=== PATIENT | male | born 1980 | race Caucasian/White ===

== ENCOUNTER 2017-07-29 17:57 | Inpatient (IN) | payer OTHER ==
[~2017-07-29] VITALS: Ht 180.3 cm; Wt 63.5 kg
[2017-07-29] MEDS ORDERED: diphenhydrAMINE 50 MG CAPSULE PO PRN (18:15)
[2017-07-29] MEDS ORDERED: MAG HYDROX/AL HYDROX/SIMETH 30 ML LIQUID UDC PO PRN (18:15)
[2017-07-29] MEDS ORDERED: LOPERAMIDE HCL 2 MG CAPSULE PO PRN ×2 (18:15)
[2017-07-29] MEDS ORDERED: MIRALAX 17 GM POWD.PACK PO PRN (18:15)
[2017-07-29] MEDS ORDERED: LORAZEPAM 2 MG/1 ML VIAL IM PRN (18:15)
[2017-07-29] MEDS ORDERED: MAGNESIUM HYDROXIDE 30 ML LIQUID UDC PO PRN (18:15)
[2017-07-29] MEDS ORDERED: LORAZEPAM 1 MG TABLET PO PRN (18:15)
[2017-07-29 18:36] VITALS: BP 142/91
[2017-07-29] MEDS ORDERED: TRAZ-147 PO (18:41)
[2017-07-29] MEDS ORDERED: GABA-534 PO (18:42)
[2017-07-29 18:50] LABS: *AMPHETAMINE, URINE NEGATIVE (NEGATIVE); *BARBITURATE, URINE NEGATIVE (NEGATIVE); *CANNABINOID, URINE POSITIVE (NEGATIVE); *COCCAINE, URINE NEGATIVE (NEGATIVE); *OPIATE, URINE NEGATIVE (NEGATIVE); *PHENCYCLIDINE SCREEN,URINE NEGATIVE (NEGATIVE)
--- NOTE | 2017-07-29 18:50 | NUR ---
PRE-ADMISSION Pt is a 36 yr old male, AA&Ox4. Pt is presenting himself to intake for alcohol use. Pt is observed with increase anxiety m/b difficulty staying still. Fine tremors and facial sweat are observed. Pt stated of vomiting throughout the day and continues to feel nauseous. Pt is c/o 9/10 pain. Pt states of having a headache, back pain and stomach pain. VS are BP 142/91, P 93, T 98.4, R 18, O2 96%. CIWA is 23. Pt states of drinking 24 beers and 1 pint of vodka for 6 weeks. Last drink was on 07/29/[address] Suarez is made aware. Pt will be admitted to the 3rd floor. Endorsed to rn night nurse to continue with care.
[2017-07-29] MEDS ORDERED: THIAMINE HCL 200 MG/2 ML VIAL IM ONE (19:00)
[2017-07-29] MEDS: LORAZEPAM 1 MG TABLET PO SCH ×2 (19:11→21:00)
[2017-07-29] MEDS: ONDANSETRON ODT 4 MG TAB.RAPDIS SL PRN (19:23)
[2017-07-29 20:00] VITALS: BP 137/89
--- NOTE | 2017-07-29 20:00 | NUR ---
Admission Note Pt is a 36 y/o male admitted on 07/29/17 for ETOH dependence. Pt has NKA, denies history of seizures. Pt was able to provide UDS. Upon admission CIWA 24, BP: 142/91, P: 93, R: 18, O2: 96%, T: 98.4, PA: 0. Weight 140, height 511. Pt reports he does not have a PCP, smokes 2-3 cigarettes daily, reports being in [facility] Emergency Room 2-3 weeks ago due to ETOH withdrawal. Pt is able to understand and respond to all questions pertaining to his hospitalization. Substance Abuse History is as follows: 1. Vodka 1 daily, last intake of 1 pint on 07/28/17, at this rate for the past 6 weeks. 2.Beer 18 12oz beer pack, last intake of 18 12oz beer pack on 07/28/17, at this rate for 6 weeks Pt also reports using a quarter of a gram of Marijuana about twice a week Pt reports he relapsed 6 weeks ago. Pts longest sober period for 3 years from [id number], per pt. Treatment history: [facility] [place], 6 weeks 2013. PMH: Anxiety, depression. Pt denies any hx of seizures. Pt did not bring any medications from home, but reports taking Gabapentin and Trazodone occasionally at home. Upon assessment, pt is AAOx4, pt has a score of CIWA 24, presents with anxiety, neck/head pounding, nausea, sweat, hot/cold, tremors visible, skin sweaty/clammy. Rash noted on right side hip, picture taken and placed in chart. Pt denies SI/HI. Educational information provided and left at bedside. Pt oriented to room and encouraged to notify staff with any concerns. Safety measures in place. Call light within reach, side rails up x 2, bed locked and in low position. Will continue to monitor.
[2017-07-29 20:45] LABS: BASOPHILS % (AUTO) 0.7 % (0.0-2.0); EOSINOPHILS % (AUTO) 0.5 % (0.0-7.0); HEMATOCRIT 45.2 % (40-50); LYMPHOCYTES # (AUTO) 1.5 K/UL (0.8-4.8); LYMPHOCYTES % (AUTO) 21.7 % (20.5-51.5); MEAN CORPUSCULAR HEMOGLOBIN 29.3 UUG (27.0-31.0); MEAN CORPUSCULAR HGB CONC 33 g/dL (32.0-37.0); MEAN CORPUSCULAR VOLUME 88.1 FL (82.0-92.0); MONOCYTES # (AUTO) 0.4 K/UL (0.1-1.30); MONOCYTES % (AUTO) 6.2 % (0.0-11.0); NEUTROPHILS % (AUTO) 70.9 % (38.5-71.5); PLATELET COUNT (AUTO) 153 K/UL (150-450); RED BLOOD CELL COUNT(AUTO) 5.13 MIL/UL (4.7-6.1); WHITE BLOOD COUNT (AUTO) 6.9 K/UL (4.0-11.2)
[2017-07-29] MEDS ORDERED: LORAZEPAM 1 MG TABLET PO SCH (21:00)
[2017-07-29 21:06] LABS: BILIRUBIN,TOTAL 0.8 mg/dL (0.2-1.0); MAGNESIUM 1.7 mg/dL (1.8-2.4); POTASSIUM 3.1 mmol/L (3.5-5.1); TOTAL PROTEIN, SERUM 7.2 g/dL (6.4-8.2)
[2017-07-29] MEDS ORDERED: POTASSIUM CHLORIDE 10 MEQ CAPSULE.SA PO ONE (21:45)
[2017-07-29] MEDS ORDERED: MAGNESIUM OXIDE 400 MG TABLET PO ONE (21:45)
[2017-07-29] MEDS ORDERED: LORAZEPAM 1 MG TABLET PO ONE (21:45)
--- NOTE | 2017-07-29 22:00 | NUR ---
Pt presents with anxiety, gross tremors, nausea, dizziness/lightheaded, hot/cold. CIWA 24 Ativan 2mg x1 administered Mag-Ox 400mg and Seamus-K 30 MEQ supplemented. Vitamin B1 inj and Zofran 4mg PRN administered. Safety measures in place. Will continue to monitor.
[2017-07-29] MEDS ORDERED: LORAZEPAM 1 MG TABLET ONE (22:07)
[2017-07-29] MEDS ORDERED: POTASSIUM CHLORIDE 10 MEQ CAPSULE.SA ONE (22:08)
[2017-07-29] MEDS ORDERED: MAGNESIUM OXIDE 400 MG TABLET ONE (22:08)
[2017-07-29] MEDS ORDERED: NICOTINE POLACRILEX 4 MG GUM-PK OF TEN BC PRN (23:15)
[2017-07-30] VITALS: BP 132/92
--- NOTE | 2017-07-30 | NUR ---
CIWA 22, Pt continues to present with anxiety, gross tremors, nausea, dizziness. Ativan 2mg PRN administered. Zofran 4mg/2ml inj administered for reports of feeling severely nauseous Safety measures in place, will continue to monitor. Addendum: 07/30/17 at 0215 by HUONG BATEMAN RN Benadryl 50mg PRN administered for sleep.
[2017-07-30] MEDS: LORAZEPAM 1 MG TABLET PO PRN ×3 (00:13→05:36)
--- NOTE | 2017-07-30 00:13 | NUR ---
IV Started on right forearm, gauge 24 site intact and patent, no redness, swelling noted. KCL NS running at 125ml/hr. Safety measures in place, will continue to monitor
[2017-07-30] MEDS: ONDANSETRON 4 MG/2 ML VIAL IM PRN (00:33)
[2017-07-30] MEDS: POTASSIUM CHLORIDE 20 MEQ in IV NS 1000 ML 1,000 ML IV PRN ×2 (00:45→12:50)
[2017-07-30] MEDS ORDERED: POLY10DR EACHEYE (02:46)
--- NOTE | 2017-07-30 03:12 | NUR ---
CIWA 18, pt reports feeling less anxious, less nausea, continues with tremors, skin flushed/clammy, dizziness/lightheaded, pt reports diarrhea. Ativan 2mg PRN and Imodium 4mg PRN administered. Safety measures in place. Will continue to monitor.
[2017-07-30 04:00] VITALS: BP 139/98
--- NOTE | 2017-07-30 04:12 | NUR ---
Upon reassessment, RHETT Lara.
--- NOTE | 2017-07-30 05:36 | NUR ---
CIWA 17, pt reports feeling hot/cold, gross tremors, nausea, sweat/clammy/skin and anxiety. Ativan 2mg PRN administered per MD orders. Safety measures in place. Will continue to monitor. Addendum: 07/30/17 at 0637 by HUONG BATEMAN RN Nicotine Gum 4mg PRN administered.
[2017-07-30] MEDS ORDERED: NICOTINE POLACRILEX 4 MG GUM-PK OF TEN BC ONE (05:45)
--- NOTE | 2017-07-30 07:00 | NUR ---
End of Shift Pt is a 36 year old male admitted for ETOH dependence, placed on 5 day Ativan taper. Pt reported consuming Vodka 1 pint daily, last intake of 1 pint on 07/28/17, Beer 18 12oz beer pack, last intake of 18 12oz beer pack on 07/28/17, at this rate for 6 weeks when he relapsed. Pt also reports using a quarter of a gram of Marijuana about twice a week. IV 24 gauge started on right forearm, intact and patient with no redness/swelling noted. KCL NS running at 125ml/hr. During shift, Ativan 2mg x1 and Ativan 2mg PRN x3 administered for CIWA 24. Assessment score decreased to CIWA 17. Zofran 4mg PRN ODT and Zofran 4mg/2ml in administered for nausea, injection effective, Mag-Ox 400mg and Seamus-K 30 MEQ supplemented. Imodium 4mg PRN administered for reports of diarrhea. Pt slept for 0 hours, intake of 700 ml PO, voids x2 and stool x0. Safety measures in place, call light within reach, side rails up x2, bed locked and in low position. Endorsed to day shift nurse.
--- NOTE | 2017-07-30 07:30 | NUR ---
START OF SHIFT Pt is a 36 yr old male, AA&Ox4. Pt was admitted on 07/29/17 for ETOH Dependence and is on 5 day Ativan taper. Medication wil well. Received report from shift production associate nurse. Pt was not able to sleep during the night. Pt started on KCL 20Meq in IV Sodium Chloride. IV site is on right hand, kept clean and dry. Pt is c/o increase anxiety, hot/cold chills, and nausea. Skin is intact, warm and dry to touch. Fine tremors are observed. Encouraged increase fluid intake. Will f/u with eMAR. Safety precautions observed. Call light is within reach. Will continue to monitor.
[2017-07-30 08:00] VITALS: BP 147/105
[2017-07-30] MEDS: LORAZEPAM 1 MG TABLET PO SCH ×4 (08:29→20:09)
[2017-07-30] MEDS: NICOTINE 14 MG/24HR PATCH TD PRN (08:30)
[2017-07-30] MEDS: CLONIDINE HCL 0.1 MG TABLET PO PRN ×2 (08:30→18:22)
[2017-07-30] MEDS: THIAMINE HCL 100 MG TABLET PO SCH (08:30)
[2017-07-30] MEDS: FOLIC ACID 1 MG TABLET PO SCH (08:30)
[2017-07-30] MEDS: MULTIVITAMINS,THERAPEUTIC TABLET PO SCH (08:30)
--- NOTE | 2017-07-30 08:30 | NUR ---
PRN GIVEN Pt c/o increase anxiety and sweats. Clonidine 0.1mg PO PRN was given as ordered. Pt also requested for NicoDerm patch for smoking cessation. NicoDerm patch 14mg PRN was applied on left shoulder. Will continue to monitor.
[2017-07-30] MEDS: IBUPROFEN 400 MG TABLET PO PRN ×2 (08:50→17:23)
--- NOTE | 2017-07-30 08:50 | NUR ---
PRN GIVEN Pt c/o headache 02/22. Motrin 400mg PO PRN was given as ordered. Medication wil well. Encouraged increase fluid intake. Will continue to monitor.
[2017-07-30] MEDS ORDERED: TUBERCULIN,PURIF.PROT.DERIV. 5 TU/0.1 ML TEST ID ONE (09:00)
[2017-07-30] MEDS ORDERED: GABAPENTIN 300 MG CAPSULE PO SCH (09:00)
[2017-07-30] MEDS ORDERED: LORAZEPAM 1 MG TABLET PO SCH (09:00)
--- NOTE | 2017-07-30 09:50 | NUR ---
PRN RE-ASSESSMENT Clonidine PRN and Motrin PRN was mildly effective. Pt continues to be observed with increase anxiety m/b difficultly staying still and c/o headache. Encouraged increase fluid intake. Will continue to monitor.
[2017-07-30] MEDS: ONDANSETRON ODT 4 MG TAB.RAPDIS SL PRN ×2 (10:40→18:21)
--- NOTE | 2017-07-30 10:41 | NUR ---
PRN GIVEN Pt c/o intermitted nausea and increase anxiety. Zofran 4mg SL PRN and Ativan 1mg PO PRN was given for CIWA score of 15. Educated pt on coping mechanism to cope with anxiety level. Pt was able to verbalize understanding. Will continue to monitor.
[2017-07-30 12:00] VITALS: BP 157/105
--- NOTE | 2017-07-30 12:00 | NUR ---
PRN RE-ASSESSMENT Zofran PRN and Ativan PRN was effective. Pt denies any n/v. CIWA score is 13. Encouraged increase fluid intake. Will continue to monitor.
[2017-07-30] MEDS: PATIENT MAY USE OWN MED- MD OK EACHEYE SCH ×2 (13:26→18:06)
[2017-07-30] MEDS ORDERED: hydrALAZINE HCL 50 MG TABLET PO PRN (13:30)
[2017-07-30] MEDS: GABAPENTIN 300 MG CAPSULE PO SCH ×2 (14:39→20:09)
[2017-07-30 16:00] VITALS: BP 146/102
--- NOTE | 2017-07-30 18:21 | NUR ---
PRN'S GIVEN Pt c/o mild nausea and anxiety. BP was 146/105. Clonidine 0.1mg PO PRN and Zofran 4mg SL PRN was given. Medication wil well. Encouraged increase fluid intake. Pt continues on IVF. Will continue to monitor.
--- NOTE | 2017-07-30 19:08 | NUR ---
END OF SHIFT Pt is a 36 yr old male, AA&Ox4. Pt was admitted on 07/29/17 for ETOH Dependence and is on 5 day Ativan taper. Medication wil well. Pt has been cooperative [facility] medication regimen and plan of care. Pt received Clonidine 0.1mg PRN x2, NicoDerm patch PRN, Motrin PRN x2, Zofran PRN x2 and Ativan 1mg PRN during the day for s/s of w/d. Medication was effective and tolerated well. Pt remains on KCL 20Meq in IV Sodium Chloride. IV site is on right hand, kept clean and dry. Pt is c/o increase anxiety and nausea. Zofran 4mg SL PRN and Clonidine 0.1mg PO PRN was given at 1821. Endorsed to hourly shift nurse to re-assess. Skin is intact, warm and dry to touch. Fine tremors are observed. Encouraged increase fluid intake. Safety precautions observed. Call light is within
[2017-07-30 20:00] VITALS: BP 139/98
--- NOTE | 2017-07-30 20:00 | NUR ---
Start of Shift Pt is a 36 year old male admitted for ETOH dependence, placed on 5 day Ativan taper. Pt reported consuming Vodka 1 pint daily and Beer 18 12oz beer pack. Pt also reports using a quarter of a gram of Marijuana about twice a week. IV 24 gauge on right forearm, intact and patent with no redness/swelling noted. KCL 20Meq in IV Sodium Chloride running at 125ml/hr. Upon assessment, pt reports feeling anxious, skin is flushed and noted with moderate sweat, tremors are visible, hot/cold sensations with chills throughout body, respirations even/unlabored, denies SOB/chest pain, reports feeling mild nausea no emesis episode, medications due. Safety measures in place, call light within reach, side rails up x2, bed locked and in low position. Will continue to monitor. Addendum: 07/31/17 at 0051 by HUONG BATEMAN RN Clonidine and Zofran administered during day shift at 1821. Pt reports effective, denies feeling nausea, reports feeling "less anxious". Safety measures in place. Will continue to monitor
[2017-07-30] MEDS: TRAZODONE 100 MG TABLET PO PRN (21:10)
--- NOTE | 2017-07-30 21:10 | NUR ---
PRN Administration Pt requests aid for sleep. Trazodone 200mg PRN administered. Safety measures in place. Will continue to monitor.
--- NOTE | 2017-07-30 22:10 | NUR ---
PRN Reassessment Upon reassessment, pt is in bed with eyes closed, resting, respirations even/unlabored. Safety measures in place, will continue to monitor.
[2017-07-31] VITALS: BP 138/95
--- NOTE | 2017-07-31 | NUR ---
Vital Signs/CIWA deferred BP 138/95, pulse 98, resp 18, SpO2 96% room air, temp 98, no pain CIWA deferred due to pt sleeping, to assess while pt is awake as ordered. Safety measures in place. Will continue to monitor.
[2017-07-31] MEDS: POTASSIUM CHLORIDE 20 MEQ in IV NS 1000 ML 1,000 ML IV PRN (01:02)
--- NOTE | 2017-07-31 01:02 | NUR ---
KCL 20Meq in IV Sodium Chloride running at 125ml/hr - New bag started IV 24 gauge on right forearm, intact and patent with no redness/swelling noted. Safety measures in place, will continue to monitor.
[2017-07-31 04:00] VITALS: BP 140/98
--- NOTE | 2017-07-31 04:00 | NUR ---
Vital Signs/CIWA deferred BP 140/98, pulse 96, resp 17, SpO2 97% room air, temp 98.1, no pain CIWA deferred due to pt sleeping, to assess while pt is awake as ordered. Safety measures in place. Will continue to monitor.
--- NOTE | 2017-07-31 07:00 | NUR ---
End of Shift Pt is a 36 year old male admitted for ETOH dependence, placed on 5 day Ativan taper. Pt reported consuming Vodka 1 pint daily and Beer 18 12oz beer pack. Pt also reports using a quarter of a gram of Marijuana about twice a week. IV 24 gauge on right forearm, intact and patent with no redness/swelling noted. KCL 20Meq in IV Sodium Chloride running at 125ml/hr. During shift, pt reported feeling anxious, skin is flushed and noted with moderate sweat, tremors are visible, hot/cold sensations with chills throughout body, respirations even/unlabored, denied SOB/chest pain, reports feeling mild nausea no emesis episode scheduled taper medications administered, CIWA 13. Trazodone 200mg PRN administered for sleep, effective. Pt slept for 7 hours, intake of 1600 ml PO, voids x4 and stool x0. Safety measures in place, call light within reach, side rails up x2, bed locked and in low position. Endorsed to day shift nurse.
[2017-07-31 07:07] LABS: BILIRUBIN,DIRECT 0.2 mg/dL (0.0-0.2); BILIRUBIN,TOTAL 0.8 mg/dL (0.2-1.0); CREATININE 0.9 mg/dL (0.6-1.3); MAGNESIUM 1.7 mg/dL (1.8-2.4); PHOSPHOROUS 3.5 mg/dL (2.5-4.9); POTASSIUM 4.1 mmol/L (3.5-5.1); TOTAL PROTEIN, SERUM 5.9 g/dL (6.4-8.2)
--- NOTE | 2017-07-31 07:30 | NUR ---
START OF SHIFT Pt is a 36 yr old male, AA&Ox4. Pt was admitted on 07/29/17 for ETOH Dependence and is on 5 day Ativan taper. Medication wil well. Received report from night nurse nurse. Pt was able to sleep for 7 hrs during the night. Pt did receive Trazodone PRN for sleep. Medication was effective. Last CIWA score was 13 at 1999. Pt remains on KCL 20Meq in IV Sodium Chloride. IV site is on right hand, kept clean and dry. Pt is c/o increase anxiety, hot/cold chills, and nausea this morning. Skin is intact, warm and moist to touch. Fine tremors are observed. Encouraged increase fluid intake. Will f/u with eMAR. Safety precautions observed. Call light is within reach. Will continue to monitor.
[2017-07-31 08:00] VITALS: BP 126/81
[2017-07-31] MEDS: FOLIC ACID 1 MG TABLET PO SCH (08:35)
[2017-07-31] MEDS: GABAPENTIN 300 MG CAPSULE PO SCH ×2 (08:35→14:57)
[2017-07-31] MEDS: THIAMINE HCL 100 MG TABLET PO SCH (08:35)
[2017-07-31] MEDS: LORAZEPAM 1 MG TABLET PO SCH ×3 (08:35→20:55)
[2017-07-31] MEDS: MULTIVITAMINS,THERAPEUTIC TABLET PO SCH (08:35)
[2017-07-31] MEDS: PATIENT MAY USE OWN MED- MD OK EACHEYE SCH ×2 (08:36→17:58)
[2017-07-31] MEDS: IBUPROFEN 400 MG TABLET PO PRN ×2 (08:37→21:06)
[2017-07-31] MEDS: ONDANSETRON ODT 4 MG TAB.RAPDIS SL PRN ×2 (08:48→21:05)
[2017-07-31] MEDS: NICOTINE 14 MG/24HR PATCH TD PRN (08:48)
--- NOTE | 2017-07-31 08:48 | NUR ---
PRN GIVEN Pt is c/o headache and stomach ache 9/10. Facial grimacing is observed. Pt also states of having mild nausea. Pt denies any episodes of vomiting. Motrin 400mg PO PRN and Zofran 4mg SL PRN was given as ordered, medication wil well. Pt also received NicoDerm patch 14mg for smoking cessation. Encouraged increase fluid intake. Will continue to monitor.
[2017-07-31] MEDS ORDERED: LORAZEPAM 1 MG TABLET PO SCH (09:00)
--- NOTE | 2017-07-31 09:50 | NUR ---
PRN RE-ASSESSMENT Zofran PRN was effective. Pt denies any n/v. Motrin PRN was mildly effective. Pt continues to c/o headache 03/25. Encouraged increase fluid intake. Will continue to monitor.
[2017-07-31 11:07] LABS: HEPATITIS B SURFACE AG Negative (Negative)
[2017-07-31 12:00] VITALS: BP 147/105
[2017-07-31] MEDS: CLONIDINE HCL 0.1 MG TABLET PO PRN (12:06)
[2017-07-31] MEDS: HYDROCORTISONE 1% CREAM 30 GM TUBE TP PRN (12:07)
[2017-07-31] MEDS: ONDANSETRON 4 MG/2 ML VIAL IM PRN (12:13)
--- NOTE | 2017-07-31 12:13 | NUR ---
PRN GIVEN Pt c/o increase anxiety and feeling nauseous. Pt denies any episodes of vomiting. Pt is also requesting Hydrocortisone cream PRN for rash on right side of hip. VS were obtained BP was 147/105 HR was 87. Clonidine 0.1mg PO PRN and Hydrocortisone Cream PRN was given at 1208. Medication wil well. Zofran 4mg IM was given at 1213 for nausea. Medication was wil well. Encouraged increase fluid intake. Will continue to monitor.
[2017-07-31] MEDS ORDERED: MAGNESIUM OXIDE 400 MG TABLET PO ONE (12:15)
[2017-07-31] MEDS ORDERED: DICYCLOMINE HCL 20 MG TABLET PO PRN (12:15)
--- NOTE | 2017-07-31 12:27 | NUR ---
PRN GIVEN Pt c/o abdominal cramping. Bentyl 20mg PO PRN was given as ordered. Medication wil well. Will continue to monitor.
--- NOTE | 2017-07-31 12:50 | NUR ---
PRN RE-ASSESSMENT Zofran 4mg IM PRN was effective. Pt denies any n/v. Encouraged increase fluid intake. Will continue to monitor.
--- NOTE | 2017-07-31 13:13 | NUR ---
PRN RE-ASSESSMENT Clonidine 0.1mg was effective. BP was decreased to 142/98. Encouraged increase fluid intake. Pt continue to c/o anxiety. Will continue to monitor.
--- NOTE | 2017-07-31 13:30 | NUR ---
PRN -REASSESSMENT Bentyl PRN was effective. Pt denies any abdominal cramping. Will continue to monitor.
--- NOTE | 2017-07-31 14:13 | NUR ---
Therapist went to clients bedroom and prompted client to come to group today and be part of recovery community. Client agreed to attend group
[2017-07-31 16:00] VITALS: BP 139/88
[2017-07-31] MEDS: ACETAMINOPHEN 325 MG TABLET PO PRN (18:03)
--- NOTE | 2017-07-31 19:00 | NUR ---
END OF SHIFT Pt is a 36 yr old male, AA&Ox4. Pt was admitted on 07/29/17 for ETOH Dependence and is on 5 day Ativan taper. Medication wil well. Pt has been cooperative [facility] medication regimen and plan of care. Pt received Clonidine 0.1mg PRN, NicoDerm patch PRN, Motrin PRN, Zofran 4mg SL PRN and Zofran 4mg IM PRN and Tylenol PRN, Maalox PRN and Bentyl PRN during the day for s/s of w/d. Medication was effective and tolerated well. Pt completed KCL 20Meq in IV Sodium Chloride in the morning. IV 24 gauge was removed per MD. Pt continues to c/o anxiety. Pt was educated on coping mechanism on how to cope with anxiety level. Pt was able to verbalized understanding. Skin is intact, warm and dry to touch. Fine tremors are observed. Encouraged increase fluid intake. Safety precautions observed. Call light is within reach.
[2017-07-31 20:00] VITALS: BP 145/94
--- NOTE | 2017-07-31 20:00 | NUR ---
Start of Shift Pt is a 36 year old male admitted for ETOH dependence, placed on 5 day Ativan taper. Pt reported consuming Vodka 1 pint daily and Beer 18 12oz beer pack. Pt also reports using a quarter of a gram of Marijuana about twice a week. IV 24 gauge on right forearm, intact and patent with no redness/swelling noted. KCL 20Meq in IV Sodium Chloride running at 125ml/hr. Upon assessment, pt reports feeling anxious, skin is flushed/clammy, hot/cold flushing with chills throughout body, respirations even/unlabored, denies SOB/chest pain, reports feeling mild nausea no emesis episode, medications due. Safety measures in place, call light within reach, side rails up x2, bed locked and in low position. Will continue to monitor. Addendum: 08/01/17 at 0036 by HUONG BATEMAN RN CORRECTION: WRONG NOTE - NEXT POST IS CORRECT START OF SHIT ASSESSMENT
--- NOTE | 2017-07-31 20:00 | NUR ---
Start of Shift Pt is a 36 year old male admitted for ETOH dependence, placed on 5 day Ativan taper. Pt reported consuming Vodka 1 pint daily and Beer 18 12oz beer pack. Pt also reports using a quarter of a gram of Marijuana about twice a week. Upon assessment, pt reports feeling anxious, skin is flushed/clammy, hot/cold flushing with chills throughout body, respirations even/unlabored, denies SOB/chest pain, reports feeling mild nausea no emesis episode, medications due. Safety measures in place, call light within reach, side rails up x2, bed locked and in low position. Will continue to monitor.
[2017-07-31] MEDS: CLONIDINE HCL 0.1 MG TABLET PO SCH (20:57)
[2017-07-31] MEDS ORDERED: GABAPENTIN 300 MG CAPSULE PO SCH (21:00)
[2017-07-31] MEDS: TRAZODONE 100 MG TABLET PO PRN (21:06)
--- NOTE | 2017-07-31 21:06 | NUR ---
PRN Administration Pt reports feeling nauseous, no emesis episode. Reports headache rated 5/10 and requests aid to help him sleep. Zofran 4mg PRN, Motrin 400mg PRN and Trazodone 200mg PRN administered. Safety measures in place. Will continue to monitor.
--- NOTE | 2017-07-31 22:06 | NUR ---
PRN Reassessment Upon reassessment, pt is in bed resting with eyes closed, respirations even/unlabored. Safety measures in place. Will continue to monitor.
[2017-08-01] VITALS: BP 141/89
--- NOTE | 2017-08-01 | NUR ---
Vital Signs/CIWA deferred BP 141/89, pulse 79, resp 16, SpO2 98% room air, temp 98, no pain CIWA deferred due to pt sleeping, to assess while pt is awake as ordered. Safety measures in place. Will continue to monitor.
[2017-08-01 04:00] VITALS: BP 132/80
--- NOTE | 2017-08-01 04:00 | NUR ---
Vital Signs/CIWA deferred BP 132/80, pulse 79, resp 16, SpO2 99% room air, temp 98.1, no pain CIWA deferred due to pt sleeping, to assess while pt is awake as ordered. Safety measures in place. Will continue to monitor.
--- NOTE | 2017-08-01 07:00 | NUR ---
End of Shift Pt is a 36 year old male admitted for ETOH dependence, placed on 5 day Ativan taper. Pt reported consuming Vodka 1 pint daily and Beer 18 12oz beer pack. Pt also reports using a quarter of a gram of Marijuana about twice a week. During shift , pt reported feeling anxious, skin is flushed/clammy, hot/cold flushing with chills throughout body scheduled taper medications administered, CIWA 9. Zofran 4mg PRN, Motrin 400mg PRN and Trazodone 200mg PRN administered, effective. Pt slept for 7 hours, intake of 1700 ml PO, voids x4 and stool x0 . Safety measures in place, call light within reach, side rails up x2, bed locked and in low position. Endorsed to day shift nurse.
--- NOTE | 2017-08-01 07:01 | NUR ---
Start of Shift Notes: Received patient in his room. Alert and verbally responsive. Oriented x 4. Appears anxious. Verbalizes "I feel like sick." No changes in LOC noted. Respirations even and unlabored. No SOB noted. Skin warm and moist to touch. Abdomen soft and non-distended. BS (+) in all 4 quadrants. No complains of N/V/D or constipation noted. Bladder non-distended. No complains of dysuria noted. Voids independently. Ambulatory ad won with steady gait. Patient is a 36 year old male admitted for ETOH dependence who was placed on a 5-day Ativan taper as ordered. No adverse reactions noted. Prior to admission, patient was using 1 pint of Vodka daily and 18 beers daily. Has reported past medical hx of anxiety, depression. NKA. FULL CODE. Regular diet. On fall and seizure precautions. Educated patient on his current plan of care for the day and his medication regimen. Encouraged oral fluid intake and encouraged group participation to learn new skills to prevent relapse. Will continue to monitor closely.
[2017-08-01 08:00] VITALS: BP 148/98
[2017-08-01] MEDS: HYDROCORTISONE 1% CREAM 30 GM TUBE TP PRN (08:09)
[2017-08-01] MEDS: PATIENT MAY USE OWN MED- MD OK EACHEYE SCH (08:10)
[2017-08-01] MEDS: MULTIVITAMINS,THERAPEUTIC TABLET PO SCH (08:12)
[2017-08-01] MEDS: GABAPENTIN 300 MG CAPSULE PO SCH ×2 (08:12→14:11)
[2017-08-01] MEDS: THIAMINE HCL 100 MG TABLET PO SCH (08:12)
[2017-08-01] MEDS: FOLIC ACID 1 MG TABLET PO SCH (08:12)
[2017-08-01] MEDS: LORAZEPAM 1 MG TABLET PO SCH ×2 (08:12→12:06)
[2017-08-01] MEDS: CLONIDINE HCL 0.1 MG TABLET PO SCH (08:12)
[2017-08-01] MEDS: ONDANSETRON ODT 4 MG TAB.RAPDIS SL PRN (08:22)
[2017-08-01] MEDS: ACETAMINOPHEN 325 MG TABLET PO PRN (08:22)
--- NOTE | 2017-08-01 08:22 | NUR ---
Zofran 4mg SL/Tylenol 650 mg/Hydrocortisone cream Patient noted with complain of nausea. NO emesis noted. Verbalizes 5/10 headache and complains of itching to affected area. Medicated patient with Zofran 4 mg SL and Tylenol 650 mg PO and Hydrocortisone cream. Will continue to monitor for effectiveness.
[2017-08-01] MEDS ORDERED: INFLUENZA VACCINE 2017-2018 0.5 ML DISP.SYRIN IM ONE (09:00)
[2017-08-01] MEDS ORDERED: LORAZEPAM 1 MG TABLET PO SCH ×3 (09:00→21:00)
--- NOTE | 2017-08-01 09:12 | NUR ---
Flu vaccine 0.5cc IM given: Administered flu vaccine to patient's left deltoid. Patient tolerated well. Patient education provided. No complains of cough, sore throat, no runny nose, no congestion and afebrile.
[2017-08-01] MEDS: NICOTINE 14 MG/24HR PATCH TD PRN (09:19)
--- NOTE | 2017-08-01 09:19 | NUR ---
Nicoderm patch given: Patient was given a nicotine patch TD as requested and ordered to help in smoking cessation
--- NOTE | 2017-08-01 09:22 | NUR ---
Re-assessment: Per patient, PRN Zofran/Tylenol was effective in improving nausea and relieving headache. PL 10/25.
[2017-08-01 12:00] VITALS: BP 129/89
--- NOTE | 2017-08-01 14:50 | NUR ---
AMA Note: Patient left AMA. Patient refused to comply with treatment and MD's orders. Patient educated about the risks and consequences of leaving AMA. Patient verbalized understanding but was adamant about leaving. Multiple staff members including doctors, administration and nurses attempted to reason out with the patient without any success. VS WNL. Skin is intact. Patient denies any S/I, H/I. Patient's psychiatrist and MD Suarez made aware. Patient was given a list of community resources, AMA forms explained and signed. All belongings were returned to the patient including his eye drops that he brought in. Patient left the facility at this time.
[2017-08-01] MEDS ORDERED: CLONIDINE HCL 0.1 MG TABLET PO SCH (21:00)
[2017-08-02] MEDS ORDERED: LORAZEPAM 1 MG TABLET PO SCH ×2 (09:00)
[2017-08-03] MEDS ORDERED: LORAZEPAM 1 MG TABLET PO SCH ×2 (09:00)
[2017-08-04] MEDS ORDERED: LORAZEPAM 1 MG TABLET PO SCH (09:00)
== END 2017-08-01 14:50 | disposition left against medical advice (07) | DRG 894 ==
LOC: SRC 17:57
PROVIDERS: ADMIT Internal Medicine; ATTEND Internal Medicine
PROC: HZ2ZZZZ Detoxification Services for Substance Abuse Treatment (ICD-10-PCS; principal; 2017-07-29)
PROC: HZ41ZZZ Group Counseling for Substance Abuse Treatment, Behavioral (ICD-10-PCS; 2017-07-31)
PROC: HZ31ZZZ Individual Counseling for Substance Abuse Treatment, Behavioral (ICD-10-PCS; 2017-08-01)
DX: F10.231 Alcohol dependence with withdrawal delirium (principal); K70.10 Alcoholic hepatitis without ascites; E83.42 Hypomagnesemia; I15.9 Secondary hypertension, unspecified; E87.6 Hypokalemia; F12.90 Cannabis use, unspecified, uncomplicated; Y90.5 Blood alcohol level of 100-119 mg/100 ml; Z81.1 Family history of alcohol abuse and dependence; Z82.3 Family history of stroke; Z82.49 Family history of ischemic heart disease and other diseases of the circulatory system; G47.00 Insomnia, unspecified; Z72.0 Tobacco use; F41.9 Anxiety disorder, unspecified; R73.9 Hyperglycemia, unspecified
CPT/HCPCS: 36415; 70030-TC; 80307; 80349; 83735; 84100; 85025; 86580; 86592; 86705; 86803; 87340; 87806; 90686; 93005; A4663; G0480; J2405; J3411; J3480; J7030; Q0162; Q0163

== ENCOUNTER 2017-10-14 04:18 | Emergency (ER) | payer OTHER ==
[~2017-10-14] VITALS: Ht 180.3 cm; Wt 72.6 kg
[~2017-10-14 04:18] MED LIST: POLY10DR EACHEYE; TRAZ-147 PO
[2017-10-14] MEDS ORDERED: CHLORDIAZEPOXIDE HCL 25 MG CAPSULE PO ONE (05:00)
[2017-10-14] MEDS ORDERED: ONDANSETRON IV *ER 4 MG/2 ML VIAL IV ONE (05:00)
[2017-10-14] MEDS ORDERED: IV NORMAL SALINE 1000 ML BAG IV ONE (05:00)
--- NOTE | 2017-10-14 05:00 | NUR ---
PT CAME TO ED AFTER REPORTEDLY CONSUMING ALCOHOL FOR THE PAST 3 WEEKS. LAST DRINK REPORTED 1 1/2 DAYS AGO
[2017-10-14] MEDS ORDERED: ONDANSETRON 4 MG/2 ML VIAL ONE (05:37)
[2017-10-14] MEDS ORDERED: CHLORDIAZEPOXIDE HCL 25 MG CAPSULE ONE (05:37)
[2017-10-14 05:46] LABS: BASOPHILS # (AUTO) 0.2 K/uL (0.0-8.0); BASOPHILS % (AUTO) 2.5 % (0.0-2.0); EOSINOPHILS # (AUTO) 0.1 K/uL (0.0-0.7); EOSINOPHILS % (AUTO) 1.1 % (0.0-7.0); HEMATOCRIT 44.2 % (36.7-47.1); HEMOGLOBIN 15.1 g/dL (12.5-16.3); LYMPHOCYTES % (AUTO) 48.9 % (20.5-51.5); MEAN CORPUSCULAR HEMOGLOBIN 30.4 uug (23.8-33.4); MEAN CORPUSCULAR HGB CONC 34 g/dL (32.5-36.3); MEAN CORPUSCULAR VOLUME 88.9 fL (73.0-96.2); MONOCYTES # (AUTO) 0.5 K/uL (2.0-10.0); MONOCYTES % (AUTO) 8.3 % (0.0-11.0); NEUTROPHILS # (AUTO) 2.4 K/uL (1.8-8.9); NEUTROPHILS % (AUTO) 39.2 % (38.5-71.5); PLATELET COUNT (AUTO) 470 K/uL (152-348); RED BLOOD CELL COUNT(AUTO) 4.97 MIL/uL (4.06-5.63)
[2017-10-14] MEDS ORDERED: HYDROCODONE/APAP 5-325MG TABLET PO ONE (06:00)
[2017-10-14] MEDS ORDERED: KETOROLAC TROMETHAMINE 15 MG INJ IVP ONE (06:00)
--- NOTE | 2017-10-14 06:00 | NUR ---
PT CRYING AND STATES "I NEED TO TALK TO SOMEONE. I DONT TRUST MYSELF LIVING ALONE. I'M SO DEPRESSED." DENIES ANY THOUGHTS OF HURTING SELF OR OTHERS. NOTIFIED
[2017-10-14] MEDS ORDERED: HYDROCODONE/APAP 5-325MG TABLET ONE (06:12)
[2017-10-14] MEDS ORDERED: KETOROLAC TROMETHAMINE 15 MG INJ ONE (06:12)
[2017-10-14 06:13] LABS: *BILIRUBIN,URIN NEGATIVE (NEGATIVE); *BLOOD, URINE NEGATIVE (NEGATIVE); *CLARITY,URINE CLEAR (CLEAR); *KETONES,URINE NEGATIVE (NEGATIVE); *PROTEIN,URINE TRACE (NEGATIVE); *UROBILINOGEN,URINE 0.2 E.U./dl (NORMAL); LEUKOCYTE ESTERASE ,URINE NEGATIVE (NEGATIVE); NITRITE, URINE NEGATIVE (NEGATIVE); UGLUCOSE NEGATIVE (NEGATIVE)
--- NOTE | 2017-10-14 06:18 | NUR ---
notified of pt's blood pressure.
[2017-10-14 06:20] LABS: CREATININE 0.9 mg/dL (0.6-1.3); POTASSIUM 3.4 mmol/L (3.5-5.1)
[2017-10-14 06:24] LABS: BILIRUBIN,DIRECT 0.1 mg/dL (0.0-0.2); BILIRUBIN,TOTAL 0.3 mg/dL (0.2-1.0); TOTAL PROTEIN, SERUM 7.5 g/dL (6.4-8.2)
[2017-10-14 06:36] LABS: *AMPHETAMINE, URINE NEGATIVE (NEGATIVE); *BARBITURATE, URINE NEGATIVE (NEGATIVE); *CANNABINOID, URINE POSITIVE (NEGATIVE); *COCCAINE, URINE NEGATIVE (NEGATIVE); *OPIATE, URINE NEGATIVE (NEGATIVE); *PHENCYCLIDINE SCREEN,URINE NEGATIVE (NEGATIVE)
[2017-10-14] MEDS ORDERED: PANTOPRAZOLE SODIUM IV 40 MG in IV DEXTROSE 5% 100 ML IV ONE (06:45)
[2017-10-14 07:01] LABS: BACTERIA,URINE NONE SEEN /HPF (NONE SEEN); SQUAMOUS EPITHELIAL CELL,UR FEW /HPF (NONE SEEN); TRANSITIONAL EPI CELLS,URINE FEW /LPF (NONE SEEN)
[2017-10-14 07:04] LABS: *COLOR,URINE YELLOW (YELLOW)
[2017-10-14] MEDS ORDERED: PANTOPRAZOLE SODIUM 40 MG VIAL ONE (07:13)
--- NOTE | 2017-10-14 07:58 | NUR ---
PT WAS D/C TO HOME. D/C INSTRUCTIONS GIVEN TO THE PT. PT WAS [facility]FFER[facility] BY [facility] S[facility]ER.
[2017-10-14 07:59] VITALS: BP 142/88
== END 2017-10-14 08:02 | disposition home or self-care (01) ==
LOC: ER 04:22
DX: F10.239 Alcohol dependence with withdrawal, unspecified (principal); F41.9 Anxiety disorder, unspecified; K85.90 Acute pancreatitis without necrosis or infection, unspecified
CPT/HCPCS: 36415; 71010; 80048; 80076; 80307; 81001; 83690; 85025; 96361; 96374; 96375; 99285; A4663; C9113; G0480; J1885; J2405; J7030